=== PATIENT | male | born 1965 | race Caucasian/White ===

== ENCOUNTER → 2016-11-29 | Outpatient (CLI) | payer BC ==
[~2016-11-29] MED LIST: ASPIRIN 81M81 MG/TA2 PO; CO ENZYME Q-1050 MG PO; EPA-CON500 MG PO; GLUCOSAMINE & C1 CA1 PO; STRATTERA60 MG PO; WELLBUTRIN XL300 M1 PO; ZANTAC 150MG T150 MG PO; ZOLOFT 100MG100 MG PO; [UNRECOGNIZED DRUG - REMARK]
== END ==
LOC: BHSO 08:29
DX: F33.42 Major depressive disorder, recurrent, in full remission (principal)

== ENCOUNTER → 2017-02-26 | Outpatient (CLI) | payer BC | LOC: BHSO 08:05 | DX: F90.0 Attention-deficit hyperactivity disorder, predominantly inattentive type (principal) ==

== ENCOUNTER → 2017-06-04 | Outpatient (CLI) | payer BC | LOC: BHSO 08:10 | DX: F90.0 Attention-deficit hyperactivity disorder, predominantly inattentive type (principal) ==

== ENCOUNTER → 2017-09-03 | Outpatient (CLI) | payer BC | LOC: BHSO 08:04 | DX: F90.0 Attention-deficit hyperactivity disorder, predominantly inattentive type (principal) ==

== ENCOUNTER → 2017-10-02 | Outpatient (CLI) | payer BC ==
[~2017-10-02] VITALS: Ht 190.5 cm; Wt 190.6 kg
[~2017-10-02] MED LIST changes: -CO ENZYME Q-1050 MG PO; -EPA-CON500 MG PO; +FISH OIL 500 M1 EAC1 PO; +THE MEDICINE S200 M2 PO; +VITAMIN D32000 I1 PO
[2017-10-02 11:08] VITALS: BP 140/97; PULSE 94
[2017-10-02 12:24] VITALS: BP 153/77; PULSE 100
[2017-10-02 12:25] VITALS: BP 132/82; PULSE 100
[2017-10-02 12:26] VITALS: BP 134/82; PULSE 93
== END ==
LOC: COL.CARD 10:42
DX: I48.91 Unspecified atrial fibrillation (principal); R06.02 Shortness of breath
CPT/HCPCS: A9502; J2785

== ENCOUNTER → 2017-11-05 | Outpatient (CLI) | payer BC | LOC: BHSO 08:33 | DX: F33.41 Major depressive disorder, recurrent, in partial remission (principal) | CPT/HCPCS: G0463 ==

== ENCOUNTER 2018-01-03 12:08 | Outpatient (CLI) | payer BC ==
[~2018-01-03] VITALS: Ht 188 cm; Wt 182.5 kg
[2018-01-03] MEDS ORDERED: STRATTERA80 MG PO (12:47)
[2018-01-03] MEDS ORDERED: GLUCOPHAGE500 MG/TAB PO (12:48)
[2018-01-03] MEDS ORDERED: CARDIZEM120 MG PO (12:49)
[2018-01-03] MEDS ORDERED: CEPHALEXIN500 M1 PO (12:49)
[2018-01-03] MEDS ORDERED: ELIQUIS 5MG PO (12:50)
[2018-01-03 12:58] LABS: POTASSIUM 4.1 mmol/L (3.4-5.0)
[2018-01-03 13:00] LABS: INR 1.3 (0.8-3.0); PROTHROMBIN TIME 15.4 SECONDS (9.7-12.8)
[2018-01-03 13:27] VITALS: BP 136/81; PULSE 83; TEMP 97.4
[2018-01-03 13:34] LABS: THYROID STIMULATING HORMONE 6.99 uIU/mL (0.465-4.680)
[2018-01-03 15:42] VITALS: BP 122/76; PULSE 66; TEMP 97.4
== END 2018-01-03 15:49 | disposition home or self-care (01) ==
LOC: EUO 12:08
PROVIDERS: Internal Medicine Interventional Cardiology
DX: I48.0 Paroxysmal atrial fibrillation (principal)
CPT/HCPCS: G9654; J0282; J2250; J2704; J7030

== ENCOUNTER → 2018-08-14 | Outpatient (CLI) | payer BC ==
[~2018-08-14] MED LIST changes: +CARDIZEM120 MG PO; +CEPHALEXIN500 M1 PO; +ELIQUIS 5MG PO; +GLUCOPHAGE500 MG/TAB PO; +STRATTERA80 MG PO
== END ==
LOC: BHSO 11:20
DX: F33.41 Major depressive disorder, recurrent, in partial remission (principal)
CPT/HCPCS: G0463

== ENCOUNTER → 2018-12-02 | Outpatient (CLI) | payer BC | LOC: COL.RAD 08:36 | DX: M16.0 Bilateral primary osteoarthritis of hip (principal); M48.07 Spinal stenosis, lumbosacral region; M46.97 Unspecified inflammatory spondylopathy, lumbosacral region; M47.816 Spondylosis without myelopathy or radiculopathy, lumbar region; M17.12 Unilateral primary osteoarthritis, left knee; M21.162 Varus deformity, not elsewhere classified, left knee; Z98.1 Arthrodesis status; Z87.81 Personal history of (healed) traumatic fracture ==

== ENCOUNTER → 2019-02-10 | Outpatient (CLI) | payer BC | LOC: BHSO 08:08 | DX: F33.41 Major depressive disorder, recurrent, in partial remission (principal) | CPT/HCPCS: G0463 ==

== ENCOUNTER → 2019-08-15 | Outpatient (CLI) | payer BC | LOC: BHSO 09:08 | DX: F33.41 Major depressive disorder, recurrent, in partial remission (principal) | CPT/HCPCS: G0463 ==

== ENCOUNTER → 2019-11-18 | Outpatient (CLI) | payer BC | LOC: BHSO 08:23 | DX: F33.41 Major depressive disorder, recurrent, in partial remission (principal) | CPT/HCPCS: G0463 ==

== ENCOUNTER → 2020-05-28 | Outpatient (CLI) | payer BC | LOC: BHSO 09:09 | DX: F33.2 Major depressive disorder, recurrent severe without psychotic features (principal) | CPT/HCPCS: G0463 ==

== ENCOUNTER → 2020-06-11 | Outpatient (CLI) | payer BC | LOC: BHSO 09:09 | DX: F33.41 Major depressive disorder, recurrent, in partial remission (principal) | CPT/HCPCS: G0463 ==

== ENCOUNTER 2020-08-17 12:37 | Day surgery (SDC) | payer BC ==
[~2020-08-17] VITALS: Ht 188 cm; Wt 172.2 kg
[2020-08-17] VITALS (10 sets, daily range): BP systolic 132–157; BP diastolic 88–106; PULSE 78–110; TEMP 97.8
[~2020-08-17 12:37] MED LIST changes: -VITAMIN D32000 I1 PO; +VITAMIND3 5000 PO
[2020-08-17 14:25] LABS: HEMATOCRIT 41.3 % (42.0-52.0); MEAN CELL VOLUME 91 fl (80.0-100.0); MEAN CORPUSCULAR HEMOGLOBIN 31 pg (27.0-31.0); MEAN CORPUSCULAR HGB CONC 34 g/dl (33.0-37.0); MEAN PLATELET VOLUME 9.2 fl (7.4-10.4); PLATELET COUNT 371 K/mm3 (130-400); RED BLOOD COUNT 4.56 M/mm3 (4.20-5.60); REDCELL DISTRIBUTION WIDTH-CV 12.5 % (11.5-14.5)
[2020-08-17 14:35] LABS: INR 1.3 (0.8-3.0)
[2020-08-17 14:36] LABS: CALCIUM 9.3 mg/dL (8.4-10.2); CREATININE, serum 0.83 (0.66-1.25); POTASSIUM 4.2 mmol/L (3.4-5.0)
[2020-08-17] MEDS ORDERED: FLEXERIL 1010 MG/TAB PO (14:51)
[2020-08-17] MEDS ORDERED: ZYRTEC 10MG10 MG PO (14:51)
[2020-08-17] MEDS ORDERED: LIPITOR 40MG TA40 MG PO (14:52)
--- NOTE | 2020-08-17 14:54 | NUR ---
SEE [facility] FOR ALL MEDICATION ADMIN TIMES, INTRA AND POST SEDATION ASSESSMENTS. PATIENT TOOK AM DOSE OF ELIQUIS. DR MANDUJANO NOTIFIED AND STATES OK TO PROCEED WITH [facility].
--- NOTE | 2020-08-17 15:40 | NUR ---
Report from Ania HOWARD. 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 Alert and oriented, denies pain and needs at this time. VS baseline. Right tband noted CD&I, good pulses and cap refill < 3 secs. 16 cc in band reported. Will monitor
--- NOTE | 2020-08-17 18:25 | NUR ---
16 cc air released from right Tband. Pt ambulated to bathroom with steady gait.
--- NOTE | 2020-08-17 18:45 | NUR ---
Removed right Tband and applied pressure dressing. INT discontinued intact. Pt called ride.
--- NOTE | 2020-08-17 19:00 | NUR ---
Discharge instructions given. Transferred to private car by ann marie
== END 2020-08-17 19:00 | disposition home or self-care (01) ==
LOC: COL.CAR 12:37
PROVIDERS: Internal Medicine Interventional Cardiology
DX: R07.9 Chest pain, unspecified (principal); R94.39 Abnormal result of other cardiovascular function study; Z20.828 Contact with and (suspected) exposure to other viral communicable diseases; I11.0 Hypertensive heart disease with heart failure; I50.22 Chronic systolic (congestive) heart failure; I48.91 Unspecified atrial fibrillation; E78.5 Hyperlipidemia, unspecified; I87.2 Venous insufficiency (chronic) (peripheral); I08.1 Rheumatic disorders of both mitral and tricuspid valves; R53.1 Weakness; R60.0 Localized edema; R73.03 Prediabetes; F43.9 Reaction to severe stress, unspecified; F32.9 Major depressive disorder, single episode, unspecified; F98.8 Other specified behavioral and emotional disorders with onset usually occurring in childhood and adolescence; Z63.5 Disruption of family by separation and divorce; Z73.3 Stress, not elsewhere classified; Z79.899 Other long term (current) drug therapy; Z79.01 Long term (current) use of anticoagulants; Z79.82 Long term (current) use of aspirin; Z88.1 Allergy status to other antibiotic agents; Z88.0 Allergy status to penicillin; Z88.2 Allergy status to sulfonamides
CPT/HCPCS: J1644; J2250; J3010